=== PATIENT | male | born 1990 | race Two or more races ===

== ENCOUNTER 2018-05-14 15:59 | Emergency (ER) | payer SELFPAY ==
[~2018-05-14] VITALS: Ht 175.3 cm; Wt 72.6 kg
[2018-05-14 16:09] VITALS: BP 127/76
[2018-05-14 16:41] LABS: Basophils # (auto) 0 uL; Basophils % (auto) 0.2 % (0.0-2.0); Eosinophils # (auto) 0.1 uL; Eosinophils % (auto) 1.3 % (0.0-7.0); Hematocrit 40.2 % (41.0-53.0); Hemoglobin 13.9 g/dL (13.5-17.5); Lymphocytes # (auto) 3.9 uL; Lymphocytes % (auto) 41.8 % (10.0-50.0); Mean Corpuscular Hemoglobin 28.8 pg (28.0-32.0); Mean Corpuscular Hgb Conc. 34.7 g/dL (32.0-36.0); Mean Corpuscular Volume 83.2 fL (80.0-100.0); Monocytes # (auto) 0.9 uL; Monocytes % (auto) 9.9 % (0.0-12.0); Neutrophils # (auto) 4.4 uL; Neutrophils % (auto) 46.8 % (37.0-80.0); Nucleated Red Blood Cells % 0.1 %; Platelet Count (auto) 309 10^3/uL (140-450); Red Blood Cells 4.84 10^6/uL (4.5-5.90); Red Cell Distribution Width 13.3 % (11.8-14.3); White Blood Cell 9.4 10^3/uL (4.4-10.8)
[2018-05-14 16:55] LABS: Alanine Aminotransferase 58 U/L (16-61); Albumin 3.8 g/dL (3.4-5.0); Amylase 70 U/L (25-115); Anion Gap 6 (5-15); Aspartate Aminotransferase 53 U/L (15-37); Blood Urea Nitrogen 11 mg/dL (7-18); Carbon Dioxide 29 mmol/L (21-32); Chloride 102 mmol/L (98-107); Glucose 91 mg/dL (74-106); Lipase 106 U/L (73-393); Magnesium 2.1 mg/dL (1.6-2.6); Potassium 3.4 mmol/L (3.5-5.1); Sodium 137 mmol/L (136-145)
[2018-05-14 16:59] LABS: Alkaline Phosphatase 61 U/L (45-117); BUN/Creatinine Ratio 9.2; GFR African American > 60 mL/min; GFR Non-African American > 60 mL/min; Total Protein 9.3 g/dL (6.4-8.2)
== END 2018-05-14 20:55 | disposition left against medical advice (07) ==
LOC: EDBD 15:59 → ER 16:07
DX: R10.11 Right upper quadrant pain (principal); Z53.21 Procedure and treatment not carried out due to patient leaving prior to being seen by health care provider
CPT/HCPCS: 36415; 80053; 82150; 83690; 83735; 85025